=== PATIENT | female | born 1950 | race Caucasian/White ===

== ENCOUNTER 2019-11-20 07:25 | Outpatient (CLI) | payer MEDICARE, SELFPAY ==
--- NOTE | ~2019-11-20 | NM_ITS ---
EXAMINATION: NM cezar stress w perfusion DATE: 11/20/2019 11:46 INDICATION: Dyspnea on exertion TECHNIQUE: Rest images were obtained following intravenous administration of 9.5 mCi Tc99m tetrofosmi n (Myoview). The patient was infused intravenously with Lexiscan (Regadenoson). Then, 28.27 mCi Tc99m tetrofosmin (Myoview) was administered intravenously, and stress images were obtained. Data was jenny nstructed into short axis and horizontal and vertical long axis SPECT images. Gated SPECT images were also obtained. COMPARISON: None. FINDINGS: There is no definite reversible or fixed perfusion abnormality to suggest ischemia or infar ction. There is normal left ventricular chamber size, wall motion and ejection fraction. Left ventr icular ejection fraction measures 68%. IMPRESSION: 1. Normal myocardial perfusion at rest and during stress. 2. Left ventricular ejection fraction measuring 68%. Reviewed, dictated and finalized at location A.
--- NOTE | 2019-11-20 07:36 | ECHO_ITS ---
Patient Info Name: Krysta Minor Age: 69 years : 1950 Gender: Female Ht: 64 in Wt: 240 lbs BSA: 2.27 m2 HR: 65 bpm BP: 146 / 98 mmHg Heart Rhythm: Sinus Rhythm Technical Quality: Good Exam Date: 11/20/2019 7:45 AM Exam Location: [facility] Patient Status: Outpatient Admit Date: 11/20/2019 Staff Ordering Physician: Michoacano Gallo DO Carpentry Supervisor: August Valentin RDCS Attending Provider: Michoacano Gallo DO Referring Physician: Sabino BARONE; Exam Type: CA echo doppler color flow Study Info Indications R06.00 - Dyspnea, unspecified Complete two-dimensional, color flow and Doppler transthoracic echocardiogram is performed. History/Risk Factors Dyspnea. Summary 1. Complete two-dimensional, color flow and Doppler transthoracic echocardiogram is performed. 2. Left ventricular chamber dimension is normal. 3. Left ventricular systolic function is normal, estimated at 55-60%. 4. There is mildly increased left ventricular wall thickness. 5. The left ventricular diastolic function is grade I diastolic dysfunction. 6. E/e' 26 is elevated. 7. The mitral valve has moderately calcified annulus. 8. There is trace mitral valve regurgitation. 9. Mild pulmonary hypertension, estimated pulmonary arterial systolic pressure is 44 mmHg. Left Ventricle E/e' 26 is elevated. Left ventricular chamber dimension is normal. Left ventricular systolic function is normal, estimated at 55-60%. There is mildly increased left ventricular wall thickness. The left ventricular diastolic function is grade I diastolic dysfunction. Right Ventricle Right ventricular systolic function is normal. TAPSE is normal at 2.2 cm. Right ventricular chamber dimension is normal. Left Atria Left atrial chamber dimension is normal. Right Atria Right atrial chamber dimension is normal. Aortic Valve The aortic valve is trileaflet. There is no aortic valve stenosis. There is no aortic valve regurgitation. Pulmonic Valve There is no pulmonic regurgitation. Mitral Valve The mitral valve has moderately calcified annulus. There is no mitral valve stenosis. There is trace mitral valve regurgitation. Tricuspid Valve There is no tricuspid valve regurgitation. Mild pulmonary hypertension, estimated pulmonary arterial systolic pressure is 44 mmHg. Pericardium/Pleural There is no pericardial effusion. Inferior Vena Cava Normal inferior vena cava with >50% collapse upon inspiration consistent with normal right atrial pressure, 5 mmHg. Aorta The aortic root size at the sinus of Valsalva is normal. Left Ventricular Outflow Tract Name Value Normal LVOT 2D LVOT Diameter 2.0 cm LVOT Doppler LVOT Peak Gradient 5 mmHg LVOT Mean Gradient 2 mmHg LVOT VTI 21 cm LVOT VTI/AV VTI Ratio 0.7 LVOT Stroke Volume 69 ml LVOT CO 4.3 l/min LVOT CI 1.9 l/min/m2 Mitral Valve
--- NOTE | 2019-11-20 07:41 | EST_ITS ---
Patient Info Name: Krysta Minor Age: 69 years : 1950 Gender: Female Ht: 65 in Wt: 240 lbs BSA: 2.29 m2 Exam Date: 11/20/2019 10:02 AM Exam Location: [facility] Patient Status: Outpatient Admit Date: 11/20/2019 Staff Ordering Physician: Michoacano Gallo DO Attending Provider: Michoacano Gallo DO Exercise Technologist: Kareem Carreon RDCS, RT Exercise Physician: Michoacano Gallo DO Exam Type: CA stress cezar w NM Study Info A regadenoson stress test was performed. Summary 1. 1. Negative lexiscan stress test for ischemic ST changes by ECG criteria. 2. 2. Baseline hypertension. 3. 3. Nuclear scan to follow and will be reported separately. Please correlate with it. 4. 4. Patient informed of the above results. Protocol: Lexiscan Stress ECG Details Stage: REST Duration (min): 2 min : 59 sec HR (bpm): 59 SBP (mmHg): 187 DBP (mmHg): 81 Stage: REST Duration (min): 20 min : 40 sec HR (bpm): 59 SBP (mmHg): 187 DBP (mmHg): 81 Stage: STAGE 1 Duration (min): 1 min : 0 sec HR (bpm): 78 SBP (mmHg): 187 DBP (mmHg): 81 Stage: RECOVERY Duration (min): 1 min : 0 sec HR (bpm): 88 SBP (mmHg): 201 DBP (mmHg): 74 Stage: RECOVERY Duration (min): 2 min : 0 sec HR (bpm): 88 SBP (mmHg): 201 DBP (mmHg): 74 Stage: RECOVERY Duration (min): 3 min : 0 sec HR (bpm): 82 SBP (mmHg): 201 DBP (mmHg): 74 Stage: RECOVERY Duration (min): 3 min : 13 sec HR (bpm): 85 SBP (mmHg): 185 DBP (mmHg): 75 Rest HR: 59 bpm Peak HR: 88 bpm Rest Sys BP: 187 mmHg Peak Sys BP: 201 mmHg Max Pred HR: 151 bpm % Max Pred HR: 58 % Target HR: 128 bpm Max RPP: 17,688 bpm*mmHg Termination Reason: Completed protocol Cardiac Symptoms: Shortness of breath Total Time: 1 min : 0 sec Rest Gould BP: 81 mmHg Peak Gould BP: 74 mmHg Total Dose: 0.4 mg Resting ECG Sinus rhythm. Stress ECG No ST changes. Arrhythmias None. Report Signatures
== END 2019-11-20 07:26 | disposition home or self-care (01) ==
PROVIDERS: PCP Internal Medicine; Visit Provider Internal Medicine Cardiovascular Disease
DX: R06.00 Dyspnea, unspecified (principal)
CPT/HCPCS: 78452; 93017; 93306; A9502; J2785

== ENCOUNTER 2020-03-12 09:49 | Outpatient (CLI) | payer MEDICARE, SELFPAY ==
[2020-03-12 10:39] LABS: Alanine Aminotransferase 16 U/L (4-35); Albumin Level 3.8 g/dL (3.5-5.1); Alkaline Phosphatase 81 U/L (38-126); Anion Gap 2 mmol/L (8-16); Aspartate Amino Transferase 21 U/L (14-36); Bilirubin,Total 0.9 mg/dL (0.2-1.3); Blood Urea Nitrogen 14 mg/dL (7-17); Calcium 8.6 mg/dL (8.4-10.2); Carbon Dioxide 34 mmol/L (22-30); Chloride 105 mmol/L (98-107); Cholesterol 149 mg/dL (0-200); Estimated Glomerular Filt Rate > 60; Glucose 131 mg/dL (65-105); HDL Direct 41 mg/dL; Potassium 4.2 mmol/L (3.4-5.0); Sodium 141 mmol/L (137-145); Triglycerides 160 mg/dL (<150)
[2020-03-12 10:50] LABS: LDL Cholesterol Direct 80 mg/dL
== END 2020-03-12 09:50 | disposition home or self-care (01) ==
LOC: ANHLAB 09:50
PROVIDERS: Family Provider Internal Medicine; PCP Internal Medicine; Referring Provider Internal Medicine Cardiovascular Disease; Visit Provider Nurse Practitioner
DX: E78.2 Mixed hyperlipidemia (principal)
CPT/HCPCS: 36415; 80053; 80061

== ENCOUNTER 2020-04-03 08:17 | Outpatient (CLI) | payer MEDICARE, SELFPAY ==
--- NOTE | ~2020-04-03 | US_ITS ---
US arterial ankle brachial ind DATE: 04/03/2020 09:20 INDICATION: 1 block claudication, recovery time of 2 minutes. Trophic changes of hair and toenails. L ower extremity cramps, spasms. History of coronary artery double bypass surgery, 2010. Dedicated hype rtension. Dedicated hypercholesterolemia. Prior smoker. TECHNIQUE: Doppler arterial pressure measurements and tracings were obtained for measurement of ankle brachial and toe brachial indices. COMPARISON: None FINDINGS: Right and left brachial artery pressures of 172 and 167 mmHg, respectively. Right monophasic arterial waveforms at the posterior tibial and dorsalis pedis arteries. Right DIXIE measures 0.32 Right TBI measures 0.75 Left monophasic arterial waveforms at the posterior tibial and dorsalis pedis arteries. Left DIXIE: 0.39 Left TBI: 0.71 IMPRESSION: Low DIXIE measurements of 0.32 on the right and 0.39 on the left Reviewed, dictated and finalized at Location A. Reviewed, dictated and finalized at location B. R CREASER
[2020-04-03 09:53] LABS: Hemoglobin A1C 6.5 % (<5.7)
[2020-04-03 09:56] LABS: Anion Gap 15 mmol/L (8-16); Blood Urea Nitrogen 20 mg/dL (7-17); Calcium 8.8 mg/dL (8.4-10.2); Carbon Dioxide 30 mmol/L (22-30); Chloride 89 mmol/L (98-107); Estimated Glomerular Filt Rate 49; Glucose 143 mg/dL (65-105); Potassium 3.9 mmol/L (3.4-5.0); Sodium 134 mmol/L (137-145)
== END 2020-04-03 08:18 | disposition home or self-care (01) ==
PROVIDERS: PCP Internal Medicine; Visit Provider Internal Medicine
DX: R25.2 Cramp and spasm (principal); R73.01 Impaired fasting glucose; I10 Essential (primary) hypertension; I73.9 Peripheral vascular disease, unspecified
CPT/HCPCS: 36415; 80048; 83036; 93922

== ENCOUNTER 2020-12-01 13:05 | Outpatient (CLI) | payer MEDICARE, SELFPAY ==
--- NOTE | ~2020-12-01 | US_ITS ---
EXAMINATION: US carotid duplex BI DATE: 12/01/2020 14:12 INDICATION: Other specified symptoms and signs involving the circulatory system. TECHNIQUE: Grayscale, color Doppler, and pulsed Doppler images of the cervical carotid arteries were obtained. The degree of vessel stenosis is placed in one of the following categories: normal, <50%, 5 0-69%, >=70% but less than near-occlusion, near-occlusion, or total occlusion. Note that percent sten osis relative to normal distal artery lumen diameter is indirectly measured from velocity measurement s as described by Bimal, et al. Radiology 2003; 229:340-346. COMPARISON: Ultrasound 07/03/2018 FINDINGS: RIGHT: The right common carotid artery (CCA) peak systolic velocity (PSV) is 58 cm/s. The right internal car otid artery (ICA) PSV is 69 cm/s. The right ICA end-diastolic velocity (EDV) is 17 cm/s. The right IC A/CCA PSV ratio is 1.2. Grayscale and color Doppler images yield an estimate of <50% diameter reducti on from plaque in the ICA. There is antegrade flow in the right vertebral artery. LEFT: The left CCA PSV is 67 cm/s. The left ICA PSV is 43 cm/s. The left ICA EDV is 11 cm/s. The left ICA/C CA PSV ratio is 0.6. Grayscale and color Doppler images yield an estimate of <50% diameter reduction from plaque in the ICA. There is antegrade flow in the left vertebral artery. IMPRESSION: 1. <50% stenosis in the right internal carotid artery. 2. <50% stenosis in the left internal carotid artery. Reviewed, dictated and finalized at location A.
--- NOTE | ~2020-12-01 | DEXA_ITS ---
Bone Density Report Name: Krysta Minor Age: 70 Sex: Female Ethnicity: White Date of : 1950 Indication: postmenopausal; height loss; prior fracture; cancer; hysterectomy; Referring Provider: Gina Zhong Study: Bone densitometry was performed. Exam Date: December 01, 2020 Accession number: [id number] Bone Density: Region BMD T-score Z-score Classification AP Spine (L1, L2, L3) 0.768 -2.3 -0.2 Osteopenia Femoral Neck (Left) 0.507 -3.1 -1.2 Osteoporosis Total Hip (Left) 0.649 -2.4 -0.9 Osteopenia Total Hip Bilateral Avg 0.661 -2.3 -0.8 Osteopenia Femoral Neck (Right) 0.416 -3.9 -2.1 Osteoporosis Total Hip (Right) 0.672 -2.2 -0.7 Osteopenia World Health Organization criteria for BMD impression classify patients as: Normal (T-score at or above -1.0), Osteopenia (T-score between -1.0 and -2.5), or Osteoporosis (T-score at or below -2.5). 10-year Fracture Risk: FRAX not reported because: Some T-score for Spine Total or Hip Total or Femoral Neck at or below -2.5 Clinical Information Provided by Patient: Has had a low trauma fracture Has the following medical conditions: Cancer, Hysterectomy Patient maximum height was 64.5 Menopause Age: 50 No regular weight bearing exercise Does not regularly consume dairy products Onset of menses at age 15 Number of children 1 Impression: The patient has established osteoporosis, based on the Right Femoral Neck T-score and the existence of a prior fracture. The patient has risk factors, including: previous fracture. Discussion: HIGH RISK OF FRACTURE. BONE DENSITY IS UNDESIRABLY LOW AT ONE OR MORE SKELETAL SITES, CONSISTENT WITH POSTMENOPAUSAL OSTEOPOROSIS. This patient's lowest T-score, in a patient who has previously fractured, meets the World Health Organization's (WHO) criteria for severe osteoporosis. In untreated patients, the risk of osteoporotic fracture increases approximately two-fold for each 1.0 SD decrease in T-score. Low bone density is not the only risk factor for fracture; also consider factors such as patient's age, frailty or poor health, risk of falling, risk of injury, previous osteoporotic fracture, family history of osteoporosis, cigarette smoking, low body weight, etc. Not everyone with low bone mineral density has osteoporosis; osteomalacia and other metabolic bone disorders should also be considered. Patients who have osteoporosis should be evaluated for specific diseases and conditions (secondary causes) that may cause or contribute to bone loss. The [place] [employer]ocr[employer] (AACE) and National Osteoporosis Foundation (NOF) recommend pharmacologic intervention for all postmenopausal women whose T-score is in this range. The patient should follow a healthful lifestyle (good nutrition with adequate calcium and vitamin D, and appro
--- NOTE | ~2020-12-01 | MM_ITS ---
EXAMINATION: MM screening josh BI w otis HISTORY: Screening mammogram TECHNIQUE: Craniocaudal and mediolateral oblique 3-D tomosynthesis images were obtained and synthetic 2-D images were generated. CAD analysis was submitted and interpreted. COMPARISON: 03/01/2018 bilateral digital screening mammogram BREAST PARENCHYMAL COMPOSITION: The breasts are almost entirely fatty. FINDINGS: There is no evidence of suspicious mass, calcification, or architectural distortion to sugg est malignancy in either breast. There has been no suspicious interval change. IMPRESSION: 1. No mammographic evidence of malignancy. 2. Recommend routine screening mammography in one year. BI-RADS Category 1: Negative Reviewed, dictated and finalized at location A.
== END 2020-12-01 13:06 | disposition home or self-care (01) ==
PROVIDERS: PCP Internal Medicine; Visit Provider Nurse Practitioner
DX: Z12.31 Encounter for screening mammogram for malignant neoplasm of breast (principal); R09.89 Other specified symptoms and signs involving the circulatory and respiratory systems; Z78.0 Asymptomatic menopausal state; Z12.39 Encounter for other screening for malignant neoplasm of breast; I65.23 Occlusion and stenosis of bilateral carotid arteries; M85.851 Other specified disorders of bone density and structure, right thigh; M85.852 Other specified disorders of bone density and structure, left thigh
CPT/HCPCS: 77063; 77067; 77080; 93880